=== PATIENT | male | born 1995 | race Caucasian/White ===

== ENCOUNTER 2019-10-11 19:24 | Emergency (ER) | payer MEDICAID ==
[~2019-10-11] VITALS: Ht 175.3 cm; Wt 115.7 kg
[2019-10-11 19:54] VITALS: BP_SYST 153
[2019-10-12 00:23] VITALS: BP_SYST 142
== END 2019-10-12 00:05 | disposition home or self-care (01) ==
LOC: SED 19:24
DX: L53.9 Erythematous condition, unspecified (principal)
CPT/HCPCS: 99281; 99283